=== PATIENT | male | born 1985 | race Caucasian/White ===

== ENCOUNTER 2025-04-15 22:04 | Emergency (ER) | payer BC ==
[~2025-04-15] VITALS: Ht 170.2 cm; Wt 76.2 kg
[2025-04-15 22:10] VITALS: BP 146/99
[2025-04-15] MEDS ORDERED: CYCL10TA9 PO (23:00)
[2025-04-15] MEDS ORDERED: ONDA4TAB11 PO (23:00)
[2025-04-15] MEDS ORDERED: OXYC-133 PO (23:00)
[2025-04-15] MEDS ORDERED: CYCLOBENZAPRINE HCL 10 MG TABLET ONE (23:49)
[2025-04-15] MEDS: CYCLOBENZAPRINE HCL 10 MG TABLET PO ONE (23:49)
[2025-04-16 01:26] VITALS: BP 134/82; TEMP 98; O2SAT 98
== END 2025-04-15 23:55 | disposition home or self-care (01) ==
LOC: ER 22:19
DX: M54.31 Sciatica, right side (principal); Z88.7 Allergy status to serum and vaccine
CPT/HCPCS: A4606; A4663